=== PATIENT | male | born 1990 | race Caucasian/White ===

== ENCOUNTER 2025-04-03 09:07 | Emergency (ER) | payer BC, SELFPAY ==
[2025-04-03] VITALS (26 sets, daily range): BP systolic 115–133; BP diastolic 60–95; PULSE 64–97; TEMP 36.6; O2SAT 96–99; BMI 23.3
--- OUTSIDE RECORDS SUMMARY | 2025-04-03 09:17 | XMS_ITS | Encounter Summary ---
Author Organization [employer] Address [id number] [address] [place] [address] Care Team Providers Care Acquisitions Librarian Name Role Phone Elissa Gallo GREENHOUSE GROWER-BIOSECURITY OFFICER Primary Care Provid er Encounter Details Date Type Department Care Team (Late st Contact Info) Description 07/26/2021 Orders Only [facility] [address] [address] [place] [address] Rachel Willett CMA Close exposure to COVID-19 virus Social History Tobacco Use Types Packs/Day Years Used Date Smoking Tobacco: Every Day Cigarettes 0.5 14 Smokeless Tobacco: Never Alcohol Use Standard Drinks/Week Comments Yes 0 (1 standard drink = 0.6 oz pur e alcohol) rarely PHQ-2 Answer Date Recorded Total Score 0 01/28/2021 Childcare Answer Date Recorded Childcare Unknown 01/21/2019 Employment Answer Date Recorded Employment Unknown 01/21/2019 Purpose - Life Answer Date Recorded Purpose and direction in life Unknown Sex and Gender Information Value Date Recorded Sex Assigned at Male 09/01/2021 3:10 PM EST Legal Sex Male 1:08 PM EDT Gender Identity Male 09/01/2021 3:10 PM EST Sexual Orientation Serrano 09/01/2021 3: 10 PM EST COVID-19 Exposure Response Date Recorded In the last month, have you been in contact with someone who was confirmed or suspected to have Coronavirus / COVID-19? No / Unsure 07/28/2021 1:03 PM EST documented as of this encounter Plan of Treatment Not on file documented as of this encounter Procedures Procedure Name Priority Date/Time Associated Diagnosis Comments SARS COV 2 (COVID-19) STAT 07/21/2021 Close exposure to COVID-19 virus documented in this encounter Results * SARS COV 2 (COVID-19)[Lab Collect] (07/21/2021) EXTERNAL SARS COV 2 Negative Negative MANUALLY TRANSCRIBED RESULTS Swab (NASOPHARYNGEAL ) 07/21/2021 us Elissa VELASCOBIOSECURITY OFFICER MICROBIOLOGY - GENER AL ORDERABLES Final Result MANUALLY TRANSCRIBED RESULTS documented in this encounter Visit Diagnoses Diagnosis Close exposure to COVID-19 virus documented in this encounter Additional Health Concerns Infection Onset Date Last Indicated Resolved Time COVID-19 Rule-Out 07/26/2021 07/21/2021 07/26/2021 2:03 PM EST COVID-19 Rule-Out 09/03/2021 09/03/2021 09/03/2021 9:52 PM EST COVID-19 Positive 09/03/2021 09/03/2021 09/24/2021 11:13 PM EST Assessment Noted Time PHQ-9 Depression Total Score: 0 01/29/20 1:30 PM EDT A Body Mass Index follow-up plan has been documented for the patient 01/28/2021 5:08 PM EDT documented as of this encounter Care Teams Acquisitions Librarian Relationship Specialty Start Date End Date Elissa Gallo APRN-CNP PCP - General Family Medicine 11/23/20 documented as of this encounter
--- OUTSIDE RECORDS SUMMARY | 2025-04-03 09:17 | XMS_ITS | Clinical Summary ---
Author Organization [employer] Address [id number] [address] [place] [address] Care Team Providers Care Blanking Press Operator Name Role Phone Elissa Gallo LIFE EDUCATOR-FREEDOM OF INFORMATION OFFICER Primary Care Provid er Allergies Active Allergy Reactions Criticality Noted Date Comments Penicillins 08/22/2017 Medications cetirizine (ZyrTEC) 10 mg tabletIndications: Allergic rhinitis due to pollen, unspecified seasonality Take 1 tablet (10 mg total) by mouth in the morning. 30 tablet 6 2 Active cholecalciferol, vitamin D3, 5,000 units tabletIndications: Vitamin D deficiency Take 1 tablet (5,000 Units total) by mouth in the morning. 30 each 5 2 Active b complex vitamins (B COMPLEX-VITAMIN B12) tabletIndications: B12 deficiency Take 1 tablet by mouth in the morning. 30 tablet 11 2 Active simvastatin (ZOCOR) 5 mg tabletIndications: Mixed hyperlipidemia Take 1 tablet (5 mg total) by mouth nightly. 30 tablet 11 2 Active omeprazole (PriLOSEC) 20 mg capsuleIndications :GERD without esophagitis Take 1 capsule (20 mg total) by mouth in the morning. 30 capsule 6 2 Active fluticasone propionate (FLONASE) 50 mcg/actuation nasal sprayIndications:A llergic rhinitis due to pollen, unspecified seasonality Administer 2 sprays into each nostril in the morning. 16 g 3 2 Active predniSONE (DELTASONE) 10 mg tabletIndications: Right acute serous otitis media, recurrence not specified,Acute pansinusitis, recurrence not specified Take 1 tablet (10 mg total) by mouth in the morning. 3 tablet 2 Active Active Problems No known active problems Family History Medical History Relation Name Comments Heart disease Brother Heart disease Father Depression Mother Diabetes Mother Heart disease Mother Relation Name Status Comments Brother Alive Father Alive Mother Alive Social History Tobacco Use Types Packs/Day Years Used Date Smoking Tobacco: Every Day Cigarettes 0.5 14 Smokeless Tobacco: Never Tobacco Cessation:Ready to Q uit: No; Counseling Given: Yes Alcohol Use Standard Drinks/Week Comments Yes 0 (1 standard drink = 0.6 oz pur e alcohol) rarely Social Connection and Isolation Panel [NHANES] A nswer Date Recorded In a typical week, how many times do you talk on the phone with family, friends, or neighbors? Once a week 09/01/2021 How often do you get together with friends or re latives? Once a week 09/01/2021 How often do you attend quaker or taoism serv ices? Never 09/01/2021 Active Member of Clubs or Organizations Not on f ile 09/01/2021 How often do you attend meet ings of the clubs or organizations you belong to? Never 09/01/2021 Are you , , di vorced, , never , or living with a partner? 09/01/2021 AUDIT-C Answer Date Recorded Q1: How often do you have a drink containing alc ohol? Monthly or less 09/01/2021 Q2: How many drinks containi ng alcohol do you have on a typical day when you are drinking? 1 or 2 09/01/2021 Q3: How often do you have si x or more drinks on one occasion? Never 09/01/2021 PHQ-2 Answer Date Recorded Total Score 0 03/30/2022 [facility] Occupat ional [facility] - Occupational Stress Questionnaire Answer Date Recorded Do you feel stress - tense, restless, nervous, or anxious, or unable to sleep at night because your mind is troubled all the time - these days? Only a little 09/01/2021 Exercise Vital Sign Answer Date Recorde d On average, how many days pe r week do you engage in moderate to strenuous exercise (like a brisk walk)? 0 days 09/01/2021 On average, how many minutes do you engage in exercise at this level? 0 min 09/01/2021 PRAPARE - Transportation Answer Date Re corded In the past 12 months, has l ack of transportation kept you from medical appointments or from getting medications? No 08/14 In the past 12 months, has l ack of transportation kept you from meetings, work, or from getting things needed for daily living? No 09/01/2021 Childcare Answer Date Recorded Do problems getting child ca re make it difficult for you to work or study? No 09/01/2021 Employment Answer Date Recorded Do you need help finding a [employer] career center and/or a training program? No 09/01/2021 Purpose - Life Answer Date Recorded I have a purpose and direction in my life. Somew hat Agree 09/01/2021 Education Answer Date Recorded What is the highest level of school you have completed or the highest degree you have received? 12th grade 09/01/2021 Sex and Gender Information Value Date Recorded Sex Assigned at Male 09/01/2021 3:10 PM EST Legal Sex Male 1:08 PM EDT Gender Identity Male 09/01/2021 3:10 PM EST Sexual Orientation Serrano 09/01/2021 3: 10 PM EST Last Filed Vital Signs Vital Sign Reading Time Taken Comments Blood Pressure 124/68 03/30/2022 1:38 PM EDT Pulse 83 03/30/2022 1:38 PM EDT Temperature 36.2 C (97.2 F) 03/30/2022 1:38 PM EDT Respiratory Rate 16 03/30/2022 1:38 PM EDT Oxygen Saturation 98% 03/30/2022 1:38 PM EDT Inhaled Oxygen Concentration - - Weight 61.2 kg (135 lb) 03/30/2022 1:38 PM EDT Height 165.1 cm (5' 5 ) 03/30/2022 1:38 PM EDT Body Mass Index 22.47 03/30/2022 1:38 PM EDT Plan of Treatment Health Maintenance Due Date Last Done Comments Tobacco Screening 2004 DTaP,Tdap and Td Vaccines (1 - Tdap) 2011 Adult BMI Screening 03/30/2023 03/30/2022 Depression Screening 03/30/2023 03/30/2022 Influenza Vaccine 04/14/2025 Medical Devices Not on file Insurance [facility] Care Teams Blanking Press Operator Relationship Specialty Start Date End Date Elissa Gallo, LIFE EDUCATOR-FREEDOM OF INFORMATION OFFICER PCP - General Family Medicine 11/23/20
--- NOTE | 2025-04-03 09:26 | ECG_ITS ---
[facility] Test Date: 2025-04-03 Pat Name: PAUL CUEVAS Department: Room: - Gender: Male [employer]: : 1990 Requested By: Order Number: [id number] Reading MD: NISHA MANE Measurements Intervals [place] Rate: 84 P: 66 MI: 120 QRS: 64 QRSD: 84 T: 55 QT: 332 QTc: 374 Interpretive Statements 1100 Sinus rhythm 9110 normal ECG No previous ECG available for comparison Electronically Signed On 04-03-2025 16:40:41 EDT by NISHA MANE
[2025-04-03 09:46] LABS: Hematocrit 47.8 % (42.0-54.0); Hemoglobin 16.9 g/dL (14.0-18.0); Immature Granulocytes Abs Auto 0.04 10^3/uL (0.00-0.03); Immature Granulocytes Pct Auto 0.3 % (0.0-0.5); Lymphocytes Absolute Auto 1.5 10^3/uL (1.2-3.8); Mean Corpuscular HGB Conc 35.4 g/dL (29.9-35.2); Mean Corpuscular Hemoglobin 31.8 pg (25.9-34.0); Mean Corpuscular Volume 89.8 fL (80.0-94.0); Platelet Count 157 10^3/uL (150-450); Red Blood Count 5.32 10^6/uL (4.70-6.10); White Blood Count 14.0 10^3/uL (4.0-11.0)
[2025-04-03 09:48] LABS: Glucose Urine UA NEGATIVE (NEGATIVE)
[2025-04-03] MEDS: 0.9 % SODIUM CHLORIDE 1,000 ML 1000 ML IV (09:53)
--- NOTE | 2025-04-03 09:53 | CT_ITS ---
The [address] [address] Patient Name: PAUL CUEVAS MRN: [id number] date: 1990 Sex: M Assigned Patient Location: ER Current Patient Location: ER Accession/Order Number: [id number] Exam Date: 04/03/2025 10:30 Report Date: 04/03/2025 10:36 At the request of: YAIMA ARIAS MD Procedure: CT abdomen pelvis wo con CT abdomen pelvis wo con 04/03/2025 10:13 AM SIGNS AND SYMPTOMS: left flank pain and hematochazia TECHNIQUE: Multidetector ct axial images of the abdomen and pelvis were obtained without IV contrast. Multiplanar reformats were performed and reviewed to further define anatomy and possible pathology. CT was performed with one or more of the following dose reduction techniques: Automated exposure control, adjustment of the mA and/or kV according to patient size, or use of iterative reconstruction technique. COMPARISON: None. FINDINGS: Lower Chest: Within normal limits. ABDOMEN: Liver: Within normal limits. Bile Ducts: Normal caliber. Gallbladder: No calcified gallstones. Normal caliber wall. Pancreas: Within normal limits. Spleen: Within normal limits. Adrenals: Within normal limits. Kidneys: There is a 5 mm nonobstructing stone at the inferior pole collecting system left kidney. There is no hydronephrosis Pelvis: Reproductive Organs: No pelvic masses. Ureters: Within normal limits. Bladder: Within normal limits. Bowel: There is wall thickening along the ascending colon, transverse colon, sigmoid colon, and rectum adjacent fat stranding suspicious for colitis axis or inflammatory. There is no bowel obstruction. Mesenteric Lymph Nodes: No enlarged mesenteric lymph nodes. Peritoneum: No ascites or free air, no fluid collection. Vessels: Atherosclerotic changes are noted in the abdominal aorta Retroperitoneum: Within normal limits. Abdominal Wall: Within normal limits. Bones: Within normal limits. CT/CT abdomen pelvis wo con IMPRESSION: There is wall thickening along the ascending colon, transverse colon, sigmoid colon, and rectum adjacent fat stranding suspicious for colitis axis or inflammatory. There is no bowel obstruction or obstructive uropathy. There is a 5 mm nonobstructing stone at the inferior pole collecting system left kidney. Impression dictated by: Uriel Morales M.D. 04/03/2025 10:36 AM Dictation Location: [place] [address] Electronically authenticated by: [id number] Y Date: 04/03/2025 10:36
[2025-04-03 09:58] LABS: Cast Seen? NONE SEEN #/LPF (NONE SEEN); Crystals Seen? None Seen #/HPF (None Seen)
[2025-04-03 10:00] LABS: INR 1.05; Prothrombin Time 11.1 sec (9.0-11.6)
[2025-04-03 10:01] LABS: Urine Culture Indicated YES-FRMC
[2025-04-03 10:11] LABS: Alanine Aminotransferase 19 U/L (16-63); Albumin Globulin Ratio 1.1; Albumin Level 3.9 g/dL (3.4-5.0); Alkaline Phosphatase 62 U/L (46-116); Anion Gap 17.3; Aspartate Amino Transferase 14 U/L (15-37); Blood Urea Nitrogen 9.0 mg/dL (7.0-18.0); Calcium 8.8 mg/dL (8.5-10.1); Carbon Dioxide 20.8 mmol/L (21.0-32.0); Chloride 99 mmol/L (98-107); Estimated GFR (African America >60 (>=60 mL/min/1.73m^2); Estimated GFR (Non-African Ame >60 (>=60 mL/min/1.73m^2); Globulin 3.7 g/dL; Glucose 118 mg/dL (74-106); Potassium 4.1 mmol/L (3.5-5.1); Sodium 133 mmol/L (136-145); Total Protein 7.6 g/dL (6.4-8.2)
--- NOTE | 2025-04-03 10:23 | ED_ITS ---
HPI HPI - General Adult General Chief complaint: GI Bleed Stated complaint: RECTAL BLEEDING ABDOMINAL PAIN NAUSEA Time Seen by Provider: 04/03/25 09:24 Source: patient Mode of arrival: walk-in Limitations: no limitations History of Present Illness HPI narrative: Patient is a 34-year-old male is coming to the ER with 24 hours history of blood in stool, mentioned that it was associated with abdominal crampy abdominal pain with the left flank pain as well, the patient denies any burning with urination he also denies any fever or chills. The patient mentioned that he is homosexual, and that he was tested for HIV almost 3 weeks ago and he was negative. Last check encounter with almost 2 days ago. 24 hours before his symptoms started Nobody at home have similar symptoms and there is no other concerns As per the patient yesterday he had some crampy abdominal pain and he went to the bathroom he had some blood in the stool as well as when he wipes, but he noticed also some time he had a cramp and he went to the bathroom he had only had some blood mostly initially was fresh yesterday but today is more dark The patient does not take any anticoagulation had no similar presentation Related Data Home Medications ?Medication ?Instructions ?Recorded ?Confirmed aripiprazole 5 mg tablet mg 04/03/25 bupropion HCl 150 mg 24 hr tablet, mg PO 04/03/25 extended release hydroxyzine pamoate 50 mg capsule mg 04/03/25 Held on 04/03/25. Instructions: Resume on 04/10/25. lamotrigine 25 mg tablet mg 04/03/25 Previous Rx's ?Medication ?Instructions ?Recorded ciprofloxacin HCl 500 mg tablet 500 mg PO BID 7 days # 14 tabs 04/03/25 meloxicam 15 mg tablet 15 mg PO DAILY PRN pain #10 tabs 04/03/25 metronidazole 500 mg tablet 500 mg PO Q8H 7 days #21 t abs 04/03/25 tamsulosin 0.4 mg capsule (Flomax) 0.4 mg PO DAILY #5 caps 04/03/25 Allergies Allergy/AdvReac Type Severity Reaction Status Date / Time Penicillins Allergy Intermediate hives Verified 04/03/25 09:23 Opioid HPI Opioid Management Most Recent Opioid Data: Last Pain Scale 10 Today, 09:58 Last ED Pain Assessment Today, 09:58 Review of Systems ROS Status of ROS 10 or more systems reviewed and unremark able except as noted in history and below PFSH PFSH Social History Little interest or pleasure in doing things: not at all Feeling down, depressed, or hopeless: not at all Exam Narrative Exam Narrative: Nurses notes and vital signs reviewed and patient is not hypoxic. General: Well-appearing and in no apparent distress. Skin: Warm, dry, no pallor noted. No rash. Head: Normocephalic, atraumatic. Neck: Supple, non-tender. Eye: Pupils are equal, round and EOMI. No scleral icterus. Ears, Nose, Mouth, and Throat: TM are clear, no nasal mucosal hypertrophy. Oral mucosa is moist, no posterior oropharynx erythema, uvula is mid-line Cardiovascular: Regular Rate and Rhythm without murmur, gallop or rub. Respiratory: No accessory muscle use or respiratory distress. Lungs are clear to auscultation, no wheezing, rales or rhonchi Chest Wall: no tenderness Back: No midline thoracic or lumbar vertebral tenderness. No CVA tenderness Musculoskeletal: normal ROM, no calf or popliteal tenderness, no lower extremity edema/swelling GI: Abdomen is soft, non-distended. Normal bowel sounds. No masses appreciated. No tenderness to palpation. No rebound, guarding, or rigidity noted. Rectal examination showed no hemorrhoid and no active bleeding--- rectal exam was done while his caring nurse was at the bedside Neurological: A&O x4. No cranial nerve dysfunction observed. No truncal ataxia. Moves all extremities. Sensation intact. Psychiatric: Cooperative and interactive. Normal mood and affect. Constitutional Vital Signs, click to edit/add: Last Vital Signs Temp 97.9 F 04/03/25 09:14 Pulse 83 04/03/25 10:25 Resp 18 04/03/25 10:25 BP 133/81 04/03/25 10:25 Pulse Ox 97 04/03/25 10:25 O2 Del Method Room Air 04/03/25 10:25 Course Vital Signs Vital signs: Vital Signs Temperature 97.9 F 04/03/25 09:14 Pulse Rate 97 H 04/03/25 09:14 Respiratory Rate 16 04/03/25 09:14 Blood Pressure 128/95 H 04/03/25 09:14 Pulse Oximetry 96 04/03/25 09:14 Oxygen Delivery Method Room Air 04/03/25 09:14 Temperature 97.9 F 04/03/25 09:14 Pulse Rate 83 04/03/25 10:25 Respiratory Rate 18 04/03/25 10:25 Blood Pressure 133/81 04/03/25 10:25 Pulse Oximetry 97 04/03/25 10:25 Oxygen Delivery Method Room Air 04/03/25 10:25 Medical Decision Making MDM Narrative Medical decision making narrative: The patient EKG showing sinus rhythm with a heart rate of [address] elevation or depression CBC shows leukocytosis with a chemistry showing some mild acidosis then the lactic acid was negative Provide with IV fluid 1 L in addition to Toradol The patient had a CAT scan that shows possible colitis of the ascending descending and transverse as well as the sigmoid The patient's case was discussed with the clammer and he recommended the patient to be started antibiotic he is safe to be discharged right now to follow-up with his primary care doctor with instruction to come back for worsening of symptoms The patient did have no fever he is feeling better after initial treatment Stool sample obtained for C. difficile as well as culture Patient was found to have a kidney stone 5 mm that is not obstructing and the patient already knows about that from previous assessment patient provided Flomax for that as well and he will follow-up with his primary care doctor he was provided with the list of the primary care excepting new patient in the area The patient also started on Cipro and Flagyl IV in the ER Lab Data Labs: Lab Results 04/03/25 04/03/25 Range/Units 09:36 09:37 WBC 14.0 H (4.0-11.0) 10^3/uL RBC 5.32 (4.70-6.10) 10^6/uL Hgb 16.9 (14.0-18.0) g/dL Hct 47.8 (42.0-54.0) % MCV 89.8 (80.0-94.0) fL MCH 31.8 (25.9-34.0) pg MCHC 35.4 H (29.9-35.2) g/dL RDW 12.3 (11.0-15.0) % Plt Count 157 (150-450) 10^3/uL MPV 11.2 (9.5-13.5) fL Neut % (Auto) 80.0 H (43.0-75.0) % Lymph % (Auto) 10.5 L (20.5-60.0) % [place] % (Auto) 8.4 (1.7-12.0) % Eos % (Auto) 0.6 L (0.9-7.0) % Baso % (Auto) 0.2 (0.2-2.0) % Neut # (Auto) 11.2 H (1.4-6.5) 10^3/uL Lymph # (Auto) 1.5 (1.2-3.8) 10^3/uL [place] # (Auto) 1.2 H (0.3-0.8) 10^3/uL Eos # (Auto) 0.1 (0.0-0.7) 10^3/uL Baso # (Auto) 0.0 (0.0-0.1) 10^3/uL Abs Immat Gran (auto) 0.04 H (0.00-0.03) 10^3/uL Imm/Tot Granulo (auto) 0.3 (0.0-0.5) % PT 11.1 (9.0-11.6) sec INR 1.05 Sodium 133 L (136-145) mmol/L Potassium 4.1 (3.5-5.1) mmol/L Chloride 99 (98-107) mmol/L Carbon Dioxide 20.8 L (21.0-32.0) mmol/L Anion Gap 17.3 BUN 9.0 (7.0-18.0) mg/dL Creatinine 0.94 (0.70-1.30) mg/dL Est GFR ( Amer) >60 (>=60 mL/min/1.73m^2) Est GFR (Non-Af Amer) >60 (>=60 mL/min/1.73m^2) BUN/Creatinine Ratio 9.6 Glucose 118 H (74-106) mg/dL Lactate 0.4 (0.4-2.0) mmol/L Calcium 8.8 (8.5-10.1) mg/dL Total Bilirubin 0.5 (0.2-1.0) mg/dL AST 14 L (15-37) U/L ALT 19 (16-63) U/L Alkaline Phosphatase 62 (46-116) U/L Troponin I High Sens <4.0 L (4.0-76.1) pg/mL Total Protein 7.6 (6.4-8.2) g/dL Albumin 3.9 (3.4-5.0) g/dL Globulin 3.7 g/dL Albumin/Globulin Ratio 1.1 Urine Color Yellow (YELLOW) Urine Clarity Clear (CLEAR) Urine pH 6.0 (5.0-9.0) Ur Specific [place] >=1.030 A (1.005-1.025) Urine Protein Trace (NEG/TRACE) mg/dL Urine Glucose (UA) Negative (NEGATIVE) mg/dL Urine Ketones Negative (NEGATIVE) mg/dL Urine Occult Blood Trace-i (NEGATIVE) Urine Nitrite Negative (NEGATIVE) Urine Bilirubin Negative (NEGATIVE) Urine Urobilinogen 0.2 (0.2-1.0) EU/dL Ur Leukocyte Esterase Negative (NEGATIVE) Urine RBC 0-2 (0-2) #/HPF Urine WBC 0-2 A (NONE SEEN) #/HPF Ur Squamous Epith Cells Few A (NONE/RARE) #/LPF Urine Crystals None seen (None Seen) #/HPF Urine Bacteria Moderate A (NONE SEEN) #/HPF Urine Casts None seen (NONE SEEN) #/LPF Urine Mucus Moderate A (NONE SEEN) Ur Culture Indicated? Yes-[facility] [place] Ethanol Quant <3 mg/dL Blood Type A Positive Antibody Screen Negative Discharge Plan Discharge Chief Complaint: GI Bleed Clinical Impression: Dysentery, Kidney stone Patient Disposition: Home, Self-Care Time of Disposition Decision: 11:42 Condition: Good Prescriptions / Home Meds: New ciprofloxacin HCl 500 mg tablet 500 mg PO BID 7 Days Qty: 14 0RF metronidazole 500 mg tablet 500 mg PO Q8H 7 Days Qty: 21 0RF meloxicam 15 mg tablet 15 mg PO DAILY PRN (Reason: pain) Qty: 10 0RF tamsulosin [Flomax] 0.4 mg capsule 0.4 mg PO DAILY Qty: 5 0RF Held hydroxyzine pamoate 50 mg capsule Hold Instructions: Resume on 04/10/25. No Action lamotrigine 25 mg tablet aripiprazole 5 mg tablet bupropion HCl 150 mg tablet extended release 24 hr PO Print Language: [place] Instructions: Infectious Colitis (ED) Additional Instructions: The patient to come back to the ER in case of fever or increasing pain The patient also to come back to the ER in case of continuous diarrhea that not responding to treatment The patient to follow-up with his primary care doctor as outpatient The patient also to hold taking his hydroxyzine while taking ciprofloxacin Referrals: Physician,Non-Staff, [Primary Care Provider] - 1 week
[2025-04-03] MEDS: KETOROLAC TROMETHAMINE 30 MG/ML VIAL 15 MG IVP (11:08)
[2025-04-03 11:23] LABS: Lactate/Lactic Acid 0.4 mmol/L (0.4-2.0)
[2025-04-03] MEDS: CIPROFLOXACIN IN 5 % DEXTROSE 400 MG/200 ML PREMIX 200 MG IV (11:24)
[2025-04-03] MEDS: METRONIDAZOLE/SODIUM CHLORIDE 500 MG/100 ML PREMIX 100 MG IV (12:25)
--- NOTE | 2025-04-03 12:53 | PC.NURSE ---
Patient report given FROYLAN Mcadams at this time
[2025-04-03 13:03] LABS: C. Difficile PCR NEGATIVE
== END 2025-04-03 13:35 | disposition home or self-care (01) ==
PROVIDERS: Emergency Provider Emergency Medicine
DX: A09 Infectious gastroenteritis and colitis, unspecified (principal); N20.0 Calculus of kidney
CPT/HCPCS: 36415; 74176; 80053; 80320; 81001; 83605; 84484; 85025; 85610; 86850; 86900; 86901; 87045; 87046; 87086; 87427; 87493; 93005; 96365; 96367; 96375; 99285; J0744; J1836; J1885